=== PATIENT | female | born 1990 | race Caucasian/White ===

== ENCOUNTER 2017-02-03 02:10 | Emergency (ER) | payer MEDICAID ==
[2017-02-03 02:49] VITALS: BP 103/83; PULSE 82; RESP 16; TEMP 98; O2SAT 98
--- NOTE | 2017-02-03 03:05 | ED PDOC ---
HPI: Wound Care - HPI Time Seen by Provider: 02/03/17 02:21 Chief Complaint (Nursing): Abnormal Skin Integrity Chief Complaint (Provider): Wound Check History Per: Patient Additional Complaint(s): Pt presents to ED for wound check. 26 yo female, PMH of Bipolar disorder, , states had on Sunday and has been been active, states feels like wound is opening up. no pain, swelling or redness. (+) pruritis. Past Medical History Reviewed: Nursing Documentation, Vital Signs Vital Signs: Last Vital Signs Temp 98.0 F 02/03/17 02:46 Pulse 82 02/03/17 02:46 Resp 16 02/03/17 02:46 BP 103/83 02/03/17 02:46 Pulse Ox 98 02/03/17 02:46 - Medical History PMH: Bipolar Disorder, Depression - Surgical History Surgical History: No Surg Hx - Family History Family History: States: Unknown Family Hx - Living Arrangements Living Arrangements: With Family - Social History Current smoker - smoking cessation education provided: No Alcohol: None Drugs: Denies - Immunization History Hx Tetanus Toxoid Vaccination: No Hx Influenza Vaccination: No Hx Pneumococcal Vaccination: No - Home Medications Home Medications: Ambulatory Orders Medication Instructions Recorded Diphenhydramine Hydrochlorid 25 mg PO TID PRN #30 cap 06/25/14 [Benadryl] Acetaminophen 625 mg PO QID PRN #60 tab 01/23/15 - Allergies Allergies/Adverse Reactions: Allergies Allergy/AdvReac Type Severity Reaction Status Date / Time No Known Allergies Allergy Verified 03/01/15 20:45 Review of Systems ROS Statement: Except As Marked, All Systems Reviewed And Found Negative Skin: Positive for: Other (incision) Physical Exam - Reviewed Nursing Documentation Reviewed: Yes Vital Signs Reviewed: Yes - Physical Exam Appears: Positive for: Well, Non-toxic, No Acute Distress Head Exam: Positive for: ATRAUMATIC, NORMAL INSPECTION, NORMOCEPHALIC Skin: Positive for: Normal Color, Warm, DRY Eye Exam: Positive for: EOMI, Normal appearance, PERRL ENT: Positive for: Normal ENT Inspection Neck: Positive for: Normal, Painless ROM Cardiovascular/Chest: Positive for: Regular Rate, Rhythm Respiratory: Positive for: CNT, Normal Breath Sounds Gastrointestinal/Abdominal: Positive for: Bowel Sounds, Soft, Tenderness ((+) well healing incision site, no surrounding ededma, erythema,no tenderess or drainage) Back: Positive for: Normal Inspection Extremity: Positive for: Normal ROM Neurologic/Psych: Positive for: Alert, Oriented - ECG O2 Sat by Pulse Oximetry: 98 Medical Decision Making Medical Decision Making: Pt educated on wound care and demonstrated full understanding Disposition - Clinical Impression Clinical Impression: Visit for wound check - Patient ED Disposition Is Patient to be Admitted: No - Disposition Disposition: Routine/Home Disposition Time: 03:12 Condition: STABLE - POA Present On Arrival: None
== END 2017-02-03 03:08 | disposition home or self-care (01) ==
LOC: H.ER 02:10
DX: Z48.00 Encounter for change or removal of nonsurgical wound dressing (principal)

== ENCOUNTER 2017-03-15 16:34 | Observation (INO) | payer MEDICAID ==
[2017-03-15] MEDS ORDERED: Sodium Chloride 0.9% 1,000 ML IV STA ×2 (16:43→18:36)
[2017-03-15 17:30] LABS: BASO % 0.5 % (0.0-2.0); EOS # 0.1 K/uL (0.0-0.7); HEMOGLOBIN 10.7 g/dL (12.0-16.0); LYMPH # 1.4 K/uL (1.0-4.3); MEAN CELL VOLUME 76.5 fl (81.0-99.0); MEAN CORPUSCULAR HEMOGLOBIN 24.8 pg (27.0-31.0); MEAN CORPUSCULAR HGB CONC 32.4 g/dL (33.0-37.0); MEAN PLATELET VOLUME 6.2 fl (7.2-11.7); MONO # 0.4 K/uL (0.0-0.8); MONO % 5.7 % (0.0-10.0); NEUT # 4.8 K/uL (1.8-7.0); NEUT % 71.8 % (50.0-75.0); RBC 4.32 Mil/uL (3.80-5.20); RED CELL DISTRIBUTION WIDTH 15.8 % (11.5-14.5); WHITE BLOOD COUNT 6.7 K/uL (4.8-10.8)
[2017-03-15 17:31] LABS: VENOUS BLOOD GAS BASE EXCESS 2.8 mmol/L (0.0-2.0); VENOUS BLOOD GAS PCO2 52 mmHg (40-60); VENOUS BLOOD GAS PO2 25 mm/Hg (30-55); VENOUS BLOOD PH 7.36 (7.32-7.43)
[2017-03-15 17:39] LABS: ALB/GLOB RATIO 1.4 (1.0-2.1); ALBUMIN 4.3 g/dL (3.5-5.0); ALT/SGPT 28 U/L (9-52); AST/SGOT 28 U/L (14-36); BLOOD UREA NITROGEN 19 mg/dl (7-17); CALCIUM 8.8 mg/dL (8.4-10.2); GFR AFRICAN-AMERICAN > 60; GFR NON-AFRICAN AMERICAN > 60; LIPASE 270 U/L (23-300)
--- NOTE | 2017-03-15 17:40 | ED PDOC ---
HPI: Abdomen Time Seen by Provider: 03/15/17 16:42 Chief Complaint (Nursing): Abdominal Pain Chief Complaint (Provider): upper abdominal pain, nausea History Per: Patient History/Exam Limitations: no limitations Onset/Duration Of Symptoms: Hrs (2) Current Symptoms Are (Timing): Still Present Severity: Moderate Location Of Pain/Discomfort: Epigastric Quality Of Discomfort: Sharp, Cramping Associated Symptoms: Nausea, Loss Of Appetite. denies: Vomiting Exacerbating Factors: None Alleviating Factors: None Last Bowel Movement: Today Additional Complaint(s): 26yo female approx 6 weeks CSection presents c/o upper abdominal pain , nausea, malaise since eating [place] about 2 hours prior to arrival. Found to have fever in ED, states she felt well this morning, no prior history of similar symptoms. Baby currently with grandmother. Pt is not breast feeding. Past Medical History Reviewed: Historical Data, Nursing Documentation, Vital Signs Vital Signs: Last Vital Signs Temp 98.1 F 03/15/17 22:20 Pulse 51 L 03/15/17 18:41 Resp 18 03/15/17 18:41 BP 121/57 L 03/15/17 22:20 Pulse Ox 100 03/15/17 22:26 - Medical History PMH: Bipolar Disorder, Depression - Surgical History Surgical History: - Family History Family History: States: Unknown Family Hx - Living Arrangements Living Arrangements: With Family - Social History Current smoker - smoking cessation education provided: No Alcohol: None - Immunization History Hx Tetanus Toxoid Vaccination: No Hx Influenza Vaccination: No Hx Pneumococcal Vaccination: No - Home Medications Home Medications: Ambulatory Orders Medication Instructions Recorded Diphenhydramine Hydrochlorid 25 mg PO TID PRN #30 cap 06/25/14 [Benadryl] Acetaminophen 625 mg PO QID PRN #60 tab 01/23/15 Ondansetron [Zofran] 4 mg PO Q6H PRN #10 tab 03/15/17 - Allergies Allergies/Adverse Reactions: Allergies Allergy/AdvReac Type Severity Reaction Status Date / Time No Known Allergies Allergy Verified 03/15/17 16:37 Review of Systems ROS Statement: Except As Marked, All Systems Reviewed And Found Negative Constitutional: Positive for: Chills, Malaise ENT: Negative for: Ear Pain, Throat Pain, Throat Swelling Cardiovascular: Negative for: Chest Pain, Palpitations Respiratory: Negative for: Cough, Shortness of Breath Gastrointestinal: Positive for: Nausea, Abdominal Pain. Negative for: Diarrhea , Hematochezia, Hematemesis Genitourinary Female: Negative for: Dysuria, Frequency, Vaginal Discharge Musculoskeletal: Negative for: Neck Pain, Arm Pain, Leg Pain Skin: Negative for: Rash, Lesions, Jaundice Neurological: Negative for: Weakness, Numbness, Headache Psych: Negative for: Anxiety, Psychosis Physical Exam - Reviewed Nursing Documentation Reviewed: Yes Vital Signs Reviewed: Yes - Physical Exam Appears: Positive for: Well, Non-toxic, No Acute Distress Head Exam: Positive for: ATRAUMATIC, NORMAL INSPECTION, NORMOCEPHALIC Skin: Positive for: Normal Color, Warm, DRY Eye Exam: Positive for: EOMI, Normal appearance, PERRL ENT: Positive for: Normal ENT Inspection Neck: Positive for: Normal, Painless ROM Cardiovascular/Chest: Positive for: Regular Rate, Rhythm Respiratory: Positive for: CNT, Normal Breath Sounds Gastrointestinal/Abdominal: Positive for: Bowel Sounds, Soft, Tenderness (mild epigastric and RUQ tenderness, no lower abd tenderness) Back: Positive for: Normal Inspection Extremity: Positive for: Normal ROM Neurologic/Psych: Positive for: Alert, Oriented - Laboratory Results Result Diagrams: 03/15/17 17:26 03/15/17 17:26 Urine POC: Negative Urine dip results: Positive for: Blood (TR) - ECG O2 Sat by Pulse Oximetry: 100 Pulse Ox Interpretation: Normal Medical Decision Making Medical Decision Making: workup initiated for biliary colic/ gastroenteritis/ or other abdominal pathology. Given fever, VBG lactate ordered, normal US abd = gallstone at neck. GB wall 2mm. No edema, no sludge. labs reviewed WBC, LFTs, lipase normal +moderate anemia, mild elev BUN c/w dehydration Given fever and presentation, CT abd pelv ordered: FINDINGS: Lower thorax: Heart size is normal. Lung bases are clear ABDOMEN: Liver: There is fatty infiltration of the liver. Gallbladder and bile ducts: unremarkable Pancreas: unremarkable Spleen: Spleen is unremarkable. There are small splenules in the left upper quadrant. Adrenals: unremarkable Kidneys and ureters: unremarkable Stomach and bowel: Stomach is partially distended. Rotation is normal. There is no obstruction. There is fecalization of the terminal ileum. Visualized portion the appendix is unremarkable.Colon is incompletely distended which limits evaluation. Appendix: See above. PELVIS: Bladder: unremarkable Reproductive: Uterus and adnexal structures are unremarkable. ABDOMEN and PELVIS: Intraperitoneal space: There is no significant fluid.There is no free air. Bones/joints: There are no acute osseous abnormalities Soft tissues: There is a fat-containing umbilical hernia. There is residual postsurgical change in the lower abdominal wall. Vasculature: Vascular structures are unremarkable. Lymph nodes: There is no pathologic adenopathy. IMPRESSION: No acute solid visceral or bowel abnormality; partially distended gallbladder, no ductal dilatation Thank you for allowing us to participate in the care of your patient. Dictated and Authenticated by: Qian Rodrigues MD 03/15/2017 9:48 PM Eastern Time ([place] & [place]) PO challenge in ED no vomiting. 22:23 Upon re-evaluation, patient is afebrile and reports improved condition. PO challenge was successful. Instructed on her findings including gallstones and need for follow up with GI/surgery. Told of risks of failure to follow up including pancreatitis, liver failure, and other major abdominal complications ED OBSERVATION Date of observation admission: 03/15/17 - Observation admission statement Patient is being placed in observation because:: Need for results from imaging techniques - Goals of Observation Goals of observation are:: CT imaging results, re-evaluation and disposition. - Progress Note Progress Note: 03/15/17 20:00 Patient was re-evaluted. Reports improvement in symptoms. Still awaiting CT results. Disposition - Clinical Impression Clinical Impression: Gallstone, Abdominal pain - Patient ED Disposition Is Patient to be Admitted: No Counseled Patient/Family Regarding: Studies Performed, Diagnosis, Need For Followup, Rx Given - Disposition Disposition: Routine/Home Disposition Time: 22:30 Condition: STABLE
[2017-03-15] MEDS ORDERED: Iohexol 240 (50 ml) PO ONE (18:17)
[2017-03-15 18:36] VITALS: RESP 18
[2017-03-15 18:41] VITALS: PULSE 51
[2017-03-15] MEDS ORDERED: Iohexol 300 100 ML IJ ONE (20:42)
[2017-03-15] MEDS ORDERED: Sodium Chloride 0.9% 50 ML IV ONE (20:42)
--- NOTE | 2017-03-15 21:49 | CT ---
EXAM: CT Abdomen and Pelvis With Intravenous Contrast CLINICAL HISTORY: 26 years old, female; Pain; Abdominal pain; Localized; Right upper quadrant (ruq); Prior surgery; Surgery date: 1-6 months; Surgery type: Pt states: 6 weeks ago; Additional info: Ruq pain, fever, gallstones TECHNIQUE: Axial computed tomography images of the abdomen and pelvis with intravenous contrast. This CT exam was performed using one or more of the following dose reduction techniques: automated exposure control, adjustment of the mA and/or kV according to patient size, and/or use of iterative reconstruction technique. Coronal and sagittal reformatted images were created and reviewed. CONTRAST: 95 mL of [id number] administered intravenously. EXAM DATE/TIME: 03/15/2017 6:17 PM COMPARISON: There are no prior studies for comparison. FINDINGS: Lower thorax: Heart size is normal. Lung bases are clear ABDOMEN: Liver: There is fatty infiltration of the liver. Gallbladder and bile ducts: unremarkable Pancreas: unremarkable Spleen: Spleen is unremarkable. There are small splenules in the left upper quadrant. Adrenals: unremarkable Kidneys and ureters: unremarkable Stomach and bowel: Stomach is partially distended. Rotation is normal. There is no obstruction. There is fecalization of the terminal ileum. Visualized portion the appendix is unremarkable.Colon is incompletely distended which limits evaluation. Appendix: See above. PELVIS: Bladder: unremarkable Reproductive: Uterus and adnexal structures are unremarkable. ABDOMEN and PELVIS: Intraperitoneal space: There is no significant fluid.There is no free air. Bones/joints: There are no acute osseous abnormalities Soft tissues: There is a fat-containing umbilical hernia. There is residual postsurgical change in the lower abdominal wall. Vasculature: Vascular structures are unremarkable. Lymph nodes: There is no pathologic adenopathy. IMPRESSION: No acute solid visceral or bowel abnormality; partially distended gallbladder, no ductal dilatation
[2017-03-15 22:06] VITALS: O2SAT 100
[2017-03-15 22:21] VITALS: BP 121/57; TEMP 98.1
--- NOTE | 2017-03-16 10:14 | CARD ---
APPROVED REPORT EKG Measurement Heart [id number] <Conclusion> Sinus bradycardia with sinus arrhythmia Otherwise normal ECG
--- NOTE | 2017-03-16 15:26 | US ---
HISTORY: RUQ and epigastric pain COMPARISON: None. TECHNIQUE: Sonographic evaluation of the right upper quadrant of the abdomen. FINDINGS: LIVER: Measures 16.2 cm in length. Normal echogenicity of the liver parenchyma. No mass. No intrahepatic bile duct dilatation. GALLBLADDER: Cholelithiasis. Several calculi seen in gallbladder neck. No mural thickening. No pericholecystic fluid. Positive sonographic Montelongo sign. Findings are equivocal for cholecystitis. COMMON BILE DUCT: Measures 2 mm. No stones. No dilatation. PANCREAS: Unremarkable as visualized. No mass. No ductal dilatation. RIGHT KIDNEY: Measures 11.2 cm in length. Normal echogenicity. No calculus, mass, or hydronephrosis. AORTA: No aneurysmal dilatation. IVC: Unremarkable. OTHER FINDINGS: None . IMPRESSION: Cholelithiasis with no mural thickening or pericholecystic fluid but positive sonographic Montelongo sign. Findings are equivocal for cholecystitis. No additional abnormality.
== END 2017-03-15 22:22 | disposition home or self-care (01) ==
LOC: H.ER 16:34 → H.EROBSV 18:17
PROVIDERS: ADMIT Emergency Medicine; ATTEND Emergency Medicine
DX: K80.20 Calculus of gallbladder without cholecystitis without obstruction (principal); F31.9 Bipolar disorder, unspecified; F32.9 Major depressive disorder, single episode, unspecified

== ENCOUNTER 2017-05-12 02:44 | Emergency (ER) | payer MEDICAID ==
[2017-05-12 03:02] VITALS: BMI 37.1
--- NOTE | 2017-05-12 03:08 | ED PDOC ---
HPI: SOB/CHF/COPD Time Seen by Provider: 05/12/17 03:06 Chief Complaint (Nursing): Shortness Of Breath Chief Complaint (Provider): CHEST PAIN History Per: Patient (26 Y/O FEMALE S/P CHOLECYSTECTOMY HERE WITH COMPLAINT OF CHEST PAIN AND SHORTNESS OF BREATH WAXING AND WANING. DENIES ANY H/O ANXIETY. DENIES ANY H/O SOB.) Past Medical History Reviewed: Historical Data, Nursing Documentation, Vital Signs Vital Signs: Last Vital Signs Temp 97.9 F 05/12/17 03:00 Pulse 60 05/12/17 03:00 Resp 16 05/12/17 03:00 BP 103/50 L 05/12/17 03:00 Pulse Ox 100 05/12/17 03:00 - Medical History PMH: Bipolar Disorder, Depression Denies: Chronic Kidney Disease - Surgical History Surgical History: Cholecystectomy, - Family History Family History: States: Unknown Family Hx - Immunization History Hx Tetanus Toxoid Vaccination: No Hx Influenza Vaccination: No Hx Pneumococcal Vaccination: No - Home Medications Home Medications: Ambulatory Orders Medication Instructions Recorded Diphenhydramine Hydrochlorid 25 mg PO TID PRN #30 cap 06/25/14 [Benadryl] Acetaminophen 625 mg PO QID PRN #60 tab 01/23/15 Ondansetron [Zofran] 4 mg PO Q6H PRN #10 tab 03/15/17 - Allergies Allergies/Adverse Reactions: Allergies Allergy/AdvReac Type Severity Reaction Status Date / Time No Known Allergies Allergy Verified 03/15/17 16:37 Review of Systems ROS Statement: Except As Marked, All Systems Reviewed And Found Negative Physical Exam - Reviewed Nursing Documentation Reviewed: Yes Vital Signs Reviewed: Yes - Physical Exam Appears: Positive for: Well, Non-toxic, No Acute Distress Head Exam: Positive for: ATRAUMATIC, NORMAL INSPECTION, NORMOCEPHALIC Skin: Positive for: Normal Color, Warm, DRY Eye Exam: Positive for: EOMI, Normal appearance, PERRL ENT: Positive for: Normal ENT Inspection Neck: Positive for: Normal, Painless ROM Cardiovascular/Chest: Positive for: Regular Rate, Rhythm Respiratory: Positive for: CNT, Normal Breath Sounds Gastrointestinal/Abdominal: Positive for: Normal Exam, Bowel Sounds, Soft Back: Positive for: Normal Inspection Extremity: Positive for: Normal ROM Neurologic/Psych: Positive for: Alert, Oriented - ECG O2 Sat by Pulse Oximetry: 100 Disposition - Disposition
[2017-05-12 03:32] LABS: BASO % 0.3 % (0.0-2.0); EOS # 0.1 K/uL (0.0-0.7); EOS % 1.6 % (0.0-4.0); HEMATOCRIT 28.7 % (34.0-47.0); LYMPH # 1.2 K/uL (1.0-4.3); LYMPH % 22.4 % (20.0-40.0); MEAN CELL VOLUME 75.7 fl (81.0-99.0); MEAN CORPUSCULAR HEMOGLOBIN 25.4 pg (27.0-31.0); MEAN CORPUSCULAR HGB CONC 33.5 g/dL (33.0-37.0); MEAN PLATELET VOLUME 6.8 fl (7.2-11.7); MONO # 0.4 K/uL (0.0-0.8); MONO % 8.2 % (0.0-10.0); NEUT # 3.6 K/uL (1.8-7.0); NEUT % 67.5 % (50.0-75.0); RED CELL DISTRIBUTION WIDTH 16.4 % (11.5-14.5); WHITE BLOOD COUNT 5.4 K/uL (4.8-10.8)
[2017-05-12 04:14] LABS: GLUCOSE,RANDOM 99 mg/dL (65-105)
[2017-05-12 04:15] LABS: BLOOD UREA NITROGEN 11 mg/dl (7-17); CALCIUM 8.6 mg/dL (8.4-10.2); CARBON DIOXIDE 27 mmol/L (22-30); CHLORIDE 105 mmol/L (98-107); GFR AFRICAN-AMERICAN > 60; POTASSIUM 3.4 MMOL/L (3.6-5.0); SODIUM 141 mmol/l (132-148); TOTAL PROTEIN 7.1 G/DL (6.3-8.2)
[2017-05-12 04:16] LABS: ALKALINE PHOSPHATASE 99 U/L (38-126); ALT/SGPT 105 U/L (9-52); AST/SGOT 96 U/L (14-36); BILIRUBIN,TOTAL 0.4 mg/dl (0.2-1.3)
[2017-05-12] MEDS ORDERED: Sodium Chloride 0.9% 1,000 ML IV STA (04:42)
[2017-05-12] MEDS ORDERED: Iodixanol 320 MG/ML 100 ML BOTTLE IV ONE (05:34)
[2017-05-12] MEDS ORDERED: Sodium Chloride 0.9% 50 ML IV ONE ×2 (05:34→05:53)
[2017-05-12] MEDS ORDERED: Iohexol 300 100 ML IJ ONE (05:52)
--- NOTE | 2017-05-12 06:19 | ED PDOC ---
- Laboratory Results Result Diagrams: 05/12/17 03:15 05/12/17 03:15 - ECG O2 Sat by Pulse Oximetry: 97 (RA) Pulse Ox Interpretation: Normal Medical Decision Making Medical Decision Making: Time: 6:00 --Patient is signed out to me by Yefri Dick PA-C pending CT and reevaluation. Time: 6:54 CT CHEST ANGIO FINDINGS: Pulmonary arteries: Unremarkable. No pulmonary embolism. Aorta: No acute findings. No thoracic aortic aneurysm. Lungs: Mild dependent atelectatic changes. No mass. No consolidation. Pleural space: Unremarkable. No significant effusion. No pneumothorax. Heart: Unremarkable. No cardiomegaly. No significant pericardial effusion. No evidence of RV dysfunction. Bones/joints: No acute fracture. No dislocation. Soft tissues: Unremarkable. Lymph nodes: Unremarkable. No enlarged lymph nodes. Gallbladder and bile ducts: Clips are noted from prior cholecystectomy. IMPRESSION: No evidence of pulmonary embolism. --Upon provider reevaluation patient is feeling better, medically stable, and requires no further treatment in the ED at this time. Patient will be discharged home. Counseling was provided and all questions were answered regarding diagnosis and need for follow up with PMD. There is agreement to discharge plan. Return if symptoms persist or worsen. Clinical Impression: dyspnea Scribe Attestation: Documented by Charlie Romeo, acting as a scribe for Krishna Yost MD Provider Scribe Attestation: All medical record entries made by the Scribe were at my direction and personally dictated by me. I have reviewed the chart and agree that the record accurately reflects my personal performance of the history, physical exam, medical decision making, and the department course for this patient. I have also personally directed, reviewed, and agree with the discharge instructions and disposition. Disposition Counseled Patient/Family Regarding: Studies Performed, Diagnosis, Need For Followup - Clinical Impression Clinical Impression: Dyspnea - POA Present On Arrival: None - Disposition Disposition: Routine/Home Disposition Time: 07:00 Condition: STABLE Instructions: Dyspnea (ED) Forms: [employer] (Pashto)
--- NOTE | 2017-05-12 06:55 | CT ---
EXAM: CT Angiography Chest With Intravenous Contrast CLINICAL HISTORY: 26 years old, female; Signs and symptoms; Shortness of breath; Patient HX: See phys doc; Additional info: R/O pe TECHNIQUE: Axial computed tomographic angiography images of the chest with intravenous contrast using pulmonary embolism protocol. All CT scans at this facility use one or more dose reduction techniques, viz.: automated exposure control; ma/kV adjustment per patient size (including targeted exams where dose is matched to indication; i.e. head); or iterative reconstruction technique. MIP reconstructed images were created and reviewed. CONTRAST: 95 mL of OMNI 300 administered intravenously. COMPARISON: No relevant prior studies available. FINDINGS: Pulmonary arteries: Unremarkable. No pulmonary embolism. Aorta: No acute findings. No thoracic aortic aneurysm. Lungs: Mild dependent atelectatic changes. No mass. No consolidation. Pleural space: Unremarkable. No significant effusion. No pneumothorax. Heart: Unremarkable. No cardiomegaly. No significant pericardial effusion. No evidence of RV dysfunction. Bones/joints: No acute fracture. No dislocation. Soft tissues: Unremarkable. Lymph nodes: Unremarkable. No enlarged lymph nodes. Gallbladder and bile ducts: Clips are noted from prior cholecystectomy. IMPRESSION: No evidence of pulmonary embolism.
[2017-05-12 07:08] VITALS: BP 133/68; PULSE 61; RESP 16; TEMP 97.8
--- NOTE | 2017-05-12 10:44 | RAD ---
HISTORY: CHEST PAIN COMPARISON: No prior. FINDINGS: LUNGS: No active pulmonary disease. PLEURA: No significant pleural effusion identified, no pneumothorax apparent. CARDIOVASCULAR: Normal. OSSEOUS STRUCTURES: No significant abnormalities. VISUALIZED UPPER ABDOMEN: Normal. OTHER FINDINGS: None. IMPRESSION: No active disease.
--- NOTE | 2017-05-12 13:29 | CARD ---
APPROVED REPORT EKG Measurement Heart [id number] AL [id number] <Conclusion> Sinus bradycardia with sinus arrhythmia Otherwise normal ECG
[2017-05-12 22:56] VITALS: O2SAT 97
== END 2017-05-12 07:19 | disposition home or self-care (01) ==
LOC: H.ER 02:44
DX: R06.00 Dyspnea, unspecified (principal)
CPT/HCPCS: 71010; 71275; 80053; 84484; 85025; 85378; 93005; 96374; 99284; J7040; Q9967

== ENCOUNTER 2017-07-18 09:15 | Emergency (ER) | payer MEDICAID ==
[2017-07-18 09:15] VITALS: BMI 37.1
[2017-07-18 09:24] VITALS: BP 127/75; PULSE 92; RESP 20; TEMP 98.9; O2SAT 98
--- NOTE | 2017-07-18 10:42 | RAD ---
PROCEDURE: Left Hand Radiographs. HISTORY: L hand wrist pain COMPARISON: None available. FINDINGS: BONES: No acute displaced fracture. JOINTS: No dislocation. SOFT TISSUES: Unremarkable. No evidence of radiopaque foreign body. OTHER FINDINGS: Evaluation of the 1st and 4th distal digits obscured by a external artifact on the patient nails. IMPRESSION: No acute displaced fracture, dislocation, or significant joint effusion identified. If symptoms persist, or if there is continued clinical concern, x-ray follow-up in 7-10 days should be considered.
--- NOTE | 2017-07-18 10:42 | RAD ---
PROCEDURE: Left Wrist Radiographs. HISTORY: L hand/wrist pain COMPARISON: None available. FINDINGS: BONES: No acute displaced fracture. JOINTS: No dislocation. SOFT TISSUES: Unremarkable. No evidence of radiopaque foreign body OTHER FINDINGS: None. IMPRESSION: No acute displaced fracture, dislocation, or significant joint effusion identified. If symptoms persist, or if there is continued clinical concern, x-ray follow-up in 7-10 days should be considered.
--- NOTE | 2017-07-18 10:53 | ED PDOC ---
Upper Extremity Pain/Injury Time Seen by Provider: 07/18/17 09:54 Chief Complaint (Nursing): Upper Extremity Problem/Injury Chief Complaint (Provider): left hand pain History Per: Patient History/Exam Limitations: no limitations Onset/Duration Of Symptoms: Days (3), Gradual Current Symptoms Are (Timing): Still Present Quality: Aching Severity: Mild Hands/Wrist (Pic): 1 - Pain Worse W/Movement Exacerbating Factor(s): Strenuous Use Of Affected Area Additional Complaint(s): 26yo female c/o left hand pain worse w movement ongoing over the last 3-4 days. 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 She states pain is diffuse and radiates to wrist. She denies injury, fall, redness, swelling, changes to nails or elbow /shoulder pain. Denies drug use. Has tattoo to L ring finger but 2+ years old. Denies other joint pains, rash, fever or malaise. Past Medical History Reviewed: Historical Data, Nursing Documentation, Vital Signs Vital Signs: Last Vital Signs Temp 98.9 F 07/18/17 09:35 Pulse 92 H 07/18/17 09:35 Resp 20 07/18/17 09:35 BP 127/75 07/18/17 09:35 Pulse Ox 98 07/18/17 09:35 - Medical History PMH: Bipolar Disorder, Depression Denies: Chronic Kidney Disease - Surgical History Surgical History: Cholecystectomy, - Family History Family History: States: Unknown Family Hx - Immunization History Hx Tetanus Toxoid Vaccination: No Hx Influenza Vaccination: No Hx Pneumococcal Vaccination: No - Home Medications Home Medications: Ambulatory Orders Medication Instructions Recorded Diphenhydramine Hydrochlorid 25 mg PO TID PRN #30 cap 06/25/14 [Benadryl] Acetaminophen 625 mg PO QID PRN #60 tab 01/23/15 Ondansetron [Zofran] 4 mg PO Q6H PRN #10 tab 03/15/17 Naproxen [Naprosyn] 500 mg PO BID PRN #14 tablet 07/18/17 - Allergies Allergies/Adverse Reactions: Allergies Allergy/AdvReac Type Severity Reaction Status Date / Time No Known Allergies Allergy Verified 07/18/17 09:35 Review of Systems Constitutional: Negative for: Fever, Chills Musculoskeletal: Positive for: Hand Pain. Negative for: Neck Pain, Shoulder Pain, Arm Pain, Leg Pain, Foot Pain Physical Exam - Reviewed Nursing Documentation Reviewed: Yes Vital Signs Reviewed: Yes - Physical Exam Appears: Positive for: Well Head Exam: Positive for: ATRAUMATIC Skin: Positive for: Normal Color, Warm Eye Exam: Positive for: Normal appearance, EOMI Cardiovascular/Chest: Positive for: Regular Rate, Rhythm Respiratory: Negative for: Respiratory Distress Extremity: Positive for: Normal ROM, Other (L hand no erythema, edema, acrylic nails obscuring nail beds pt refused to take off, normal radial pulse, no cyanosis, weakness or sensory loss to hand or digits, +mild tinels sign, neg finkelsetin test). Negative for: Tenderness, Deformity, Swelling Neurologic/Psych: Positive for: Alert, Oriented. Negative for: Motor/Sensory Deficits - ECG O2 Sat by Pulse Oximetry: 98 Medical Decision Making Medical Decision Making: XRay L hand and wrist neg for fracture per radilogist neurologically intact in ED, no evidence of current compartment syndrome, hand infection, neurologic emergency or ischemia. Wrist splint applied by MD lui intact neurovascular status thereafter. Initiate NSAID and followup hand specialist for further testing. Disposition - Clinical Impression Clinical Impression: Hand pain, left - Patient ED Disposition Is Patient to be Admitted: No Counseled Patient/Family Regarding: Studies Performed, Diagnosis, Need For Followup, Rx Given - Disposition Referrals: Devora Galeas MD [Staff Provider] - Disposition Time: 11:10 Condition: STABLE Additional Instructions: [place]up with hand specialist for further testing and definitive care. Take medication as directed. Use wrist splint as directed. Prescriptions: Naproxen [Naprosyn] 500 mg PO BID PRN #14 tablet PRN Reason: Pain, Moderate (4-7) Instructions: Carpal Tunnel Syndrome (ED), Arthralgia (ED) Forms: [employer] (Indonesian)
== END 2017-07-18 11:21 | disposition home or self-care (01) ==
LOC: H.ER 09:15
DX: M79.642 Pain in left hand (principal)

== ENCOUNTER 2017-08-08 03:29 | Emergency (ER) | payer MEDICAID ==
[2017-08-08 03:30] VITALS: BMI 37.1
[2017-08-08 04:04] VITALS: BP 115/76; PULSE 81; RESP 16; TEMP 98.6; O2SAT 100
--- NOTE | 2017-08-08 04:55 | ED PDOC ---
HPI: Eye Injury/Pain Time Seen by Provider: 08/08/17 04:15 Chief Complaint (Nursing): Eye Problem Chief Complaint (Provider): left eye irritation History Per: Patient History/Exam Limitations: no limitations Onset/Duration Of Symptoms: Days (2) Current Symptoms Are (Timing): Still Present Associated Symptoms: Pain Additional History Per: Patient Additional Complaint(s): 26 y/o female presents with left eye irritation x 2 days. Patient states she lost her contact while taking it out at night time, and found it by the sink in the morning, so placed it in solution then put it back in her eye. Patient states since then she has had a burning sensation to left eye and notes redness. Denies headache, vision changes, foreign body sensation, discharge from eye. Using red eye drops without improvement. Past Medical History Reviewed: Historical Data, Nursing Documentation, Vital Signs Vital Signs: Last Vital Signs Temp 98.6 F 08/08/17 04:01 Pulse 81 08/08/17 04:01 Resp 16 08/08/17 04:01 BP 115/76 08/08/17 04:01 Pulse Ox 100 08/08/17 04:01 - Medical History PMH: Bipolar Disorder, Depression Denies: Chronic Kidney Disease - Surgical History Surgical History: Cholecystectomy, - Family History Family History: States: Unknown Family Hx - Immunization History Hx Tetanus Toxoid Vaccination: No Hx Influenza Vaccination: No Hx Pneumococcal Vaccination: No - Home Medications Home Medications: Ambulatory Orders Medication Instructions Recorded Diphenhydramine Hydrochlorid 25 mg PO TID PRN #30 cap 06/25/14 [Benadryl] Acetaminophen 625 mg PO QID PRN #60 tab 01/23/15 Ondansetron [Zofran] 4 mg PO Q6H PRN #10 tab 03/15/17 Naproxen [Naprosyn] 500 mg PO BID PRN #14 tablet 07/18/17 Ofloxacin Ophth 0.3% [Ocuflox 2 drop OS QID #1 bottle 08/08/17 Ophth 0.3%] - Allergies Allergies/Adverse Reactions: Allergies Allergy/AdvReac Type Severity Reaction Status Date / Time No Known Allergies Allergy Verified 07/18/17 09:35 Review of Systems ROS Statement: Except As Marked, All Systems Reviewed And Found Negative Eyes: Positive for: Redness (left) Physical Exam - Reviewed Nursing Documentation Reviewed: Yes Vital Signs Reviewed: Yes - Physical Exam Appears: Positive for: Well, Non-toxic, No Acute Distress Head Exam: Positive for: ATRAUMATIC, NORMAL INSPECTION, NORMOCEPHALIC Skin: Positive for: Normal Color Eye Exam: Positive for: EOMI, PERRL, Conjunctival injection (left). Negative for: Periorbital swelling, Periorbital tenderness - ECG O2 Sat by Pulse Oximetry: 100 - Progress ED Course And Treament: Left eye anesthesized with 1 drop tetracaine; fluro stain reveals no uptake. Patient educated on findings, discharged with rx ofloxacin. Advised to d/c contacts. Follow up optho. Return precautions given. Disposition - Clinical Impression Clinical Impression: Conjunctivitis - Patient ED Disposition Is Patient to be Admitted: No Counseled Patient/Family Regarding: Studies Performed, Diagnosis, Need For Followup, Rx Given - Disposition Referrals: Arvind Shay MD [Primary Care Provider] - Mohan Lazo MD [Staff Provider] - Disposition: Routine/Home Disposition Time: 04:55 Condition: IMPROVED Prescriptions: Ofloxacin Ophth 0.3% [Ocuflox Ophth 0.3%] 2 drop OS QID #1 bottle Instructions: Conjunctivitis (ED)
== END 2017-08-08 05:05 | disposition home or self-care (01) ==
LOC: H.ER 03:29
DX: H10.9 Unspecified conjunctivitis (principal); F31.9 Bipolar disorder, unspecified

== ENCOUNTER 2018-08-29 17:03 | Emergency (ER) | payer MEDICAID ==
[2018-08-29 17:03] VITALS: BMI 37.1
[2018-08-29 18:12] VITALS: RESP 18; O2SAT 100
--- NOTE | 2018-08-29 19:04 | ED PDOC ---
Upper Extremity Pain/Injury Time Seen by Provider: 08/29/18 18:15 Chief Complaint (Nursing): Upper Extremity Problem/Injury Chief Complaint (Provider): Right Arm Pain History Per: Patient History/Exam Limitations: no limitations Onset/Duration Of Symptoms: Days (x4) Current Symptoms Are (Timing): Still Present Additional Complaint(s): 27 year old female presents to the ED for evaluation of a right upper arm injury s/p falling down "a few stairs" four days ago. She reports breaking her fall with her right arm and since has had localized persistent 6/10 pain to the arm radiating down to the elbow, worse with movement and unrelieved by topical remedies. Additionally notes difficulty lifting objects. Denies taking any oral medications, head injury, or loss of consciousness. LNMP: 08/03/2018 Right hand dominant PMD: Steven Tomas Past Medical History Reviewed: Historical Data, Nursing Documentation, Vital Signs Vital Signs: Last Vital Signs Temp 98.4 F 08/29/18 18:12 Pulse 68 08/29/18 18:12 Resp 18 08/29/18 18:12 BP 124/62 08/29/18 18:12 Pulse Ox 100 08/29/18 18:12 - Medical History PMH: Bipolar Disorder, Depression - Surgical History Surgical History: Cholecystectomy, - Family History Family History: States: Unknown Family Hx - Social History Current smoker - smoking cessation education provided: No Alcohol: None Drugs: Denies - Home Medications Home Medications: Ambulatory Orders Medication Instructions Recorded Diphenhydramine Hydrochlorid 25 mg PO TID PRN #30 cap 06/25/14 [Benadryl] RX: Acetaminophen 625 mg PO QID PRN #60 tab 01/23/15 Ondansetron [Zofran] 4 mg PO Q6H PRN #10 tab 03/15/17 Naproxen [Naprosyn] 500 mg PO BID PRN #14 tablet 07/18/17 RX: Ofloxacin Ophth 0.3% [Ocuflox 2 drop OS QID #1 bottle 08/08/17 Ophth 0.3%] Acetaminophen [Acetaminophen 8 650 mg PO Q8 PRN #21 tablet.er 08/29/18 Hour] RX: Naproxen 500 mg PO BID PRN #20 tab 08/29/18 - Allergies Allergies/Adverse Reactions: Allergies Allergy/AdvReac Type Severity Reaction Status Date / Time No Known Allergies Allergy Verified 07/18/17 09:35 Review of Systems ROS Statement: Except As Marked, All Systems Reviewed And Found Negative Constitutional: Negative for: Other (head injury) Musculoskeletal: Positive for: Arm Pain (right upper arm radiating to elbow, worse with movement) Neurological: Negative for: Other (loss of consciousness) Physical Exam - Reviewed Nursing Documentation Reviewed: Yes Vital Signs Reviewed: Yes - Physical Exam Comments: GENERAL APPEARANCE: Patient is awake, alert, oriented x 3, in no acute distress. SKIN: Warm, dry; (-) cyanosis. NECK: Supple, FROM ENT: Mucus membranes moist. Airway patent, (-) stridor. CHEST AND RESPIRATORY: (-) rales, (-) rhonchi, (-) wheezes; breath sounds equal bilaterally. Respirations even and nonlabored. HEART AND CARDIOVASCULAR: (-) irregularity RIGHT UPPER EXTREMITY: (+) 5cm x3cm area of ecchymosis to the medial distal upper arm, (+) faint ecchymosis to lateral distal upper arm (+) diffuse tenderness to distal half of humerus of upper arm and posterior elbow. Decreased flexion of elbow secondary to pain, otherwise FROM of remainder of Upper Extremity. (-) edema, (-) erythema, (-) skin break, (-) warmth. Sensation and capillary refill intact. (+) distal pulses NEURO AND PSYCH: Mental status as above. Gait: steady. Speech: clear. (-) facial asymmetry (-) aphasia - Laboratory Results Urine POC: Negative - ECG O2 Sat by Pulse Oximetry: 100 (RA) Pulse Ox Interpretation: Normal Medical Decision Making Medical Decision Making: Initial Impression: acute right arm pain, r/o humerus fx Time: 1839 Initial Plan: --Right humerus XR --Toradol 30mg IM --re-evaluation 1914 Humerus XR reviewed: possible supracondylar fracture as read by Joao MARINELLI Elbow XR 3 views ordered for further evaluation of possible fracture. 2029 Elbow XR: (?) supracondylar fracture as read by Joao MARINELLI Patient placed in posterior long arm splint and arm sling by VICTOR HUGO Sommer. Placement and application verified by Joao MARIENLLI. NV intact after placement. Patient educated on splint care. On re-evaluation, patient reports improvement of symptoms. On exam, patient remains AAOx3, in no acute distress. Vitals stable. Lab / Diagnostic results d/w the patient in great detail. Diagnosis of acute arm pain s/p fall, possible elbow fracture d/w the patient. Based on history, exam and diagnostic results, plan will be for outpatient follow up with PMD/ortho. Patient instructed to follow-up with pmd / referral provided / the clinic in 1- 2 days without fail. Advised to take medication as prescribed. Return to the emergency room at any time for any new or worsening symptoms. Patient states she fully agrees with and understands discharge instructions. States that she agrees with the plan and disposition. Verbalized and repeated discharge instructions and plan. I have given the patient opportunity to ask any additional questions. Scribe Attestation: Documented by Juana Graves, acting as a scribe for Allison Shepherd PA-C. Provider Scribe Attestation: All medical record entries made by the Scribe were at my direction and personally dictated by me. I have reviewed the chart and agree that the record accurately reflects my personal performance of the history, physical exam, medical decision making, and the department course for this patient. I have also personally directed, reviewed, and agree with the discharge instructions and disposition. Disposition - Clinical Impression Clinical Impression: Elbow pain, right, Fall down stairs, Contusion, arm, upper, Supracondylar fracture of humerus - Patient ED Disposition Is Patient to be Admitted: No Counseled Patient/Family Regarding: Studies Performed, Diagnosis, Need For Followup, Rx Given - Disposition Referrals: Christofer Vyas MD [Medical Doctor] - primary, doctor [Other] Disposition: Routine/Home Disposition Time: 20:30 Condition: STABLE Additional Instructions: FOLLOW UP WITH ORTHO FOR FURTHER EVALUATION. LEAVE SPLINT IN PLACE, INTACT, AND DRY. The emergency medical care you received today was directed at your acute symptoms. If you were prescribed any medication, please fill it and take as directed. It may take several days for your symptoms to resolve. Return to the Emergency Department if your symptoms worsen, do not improve, or if you have any other problems. Please contact your doctor in 2 days for re-evaluation and follow up / or call one of the physicians/clinics you have been referred to that are listed on the Patient Visit Information form that is included in your discharge packet. Bring any paperwork you were given at discharge with you along with any medications you are taking to your follow up visit. Our treatment cannot replace ongoing medical care by a primary care provider (PCP) outside of the emergency department. Prescriptions: Acetaminophen [Acetaminophen 8 Hour] 650 mg PO Q8 PRN #21 tablet.er PRN Reason: Pain, Moderate (4-7) RX: Naproxen 500 mg PO BID PRN #20 tab PRN Reason: Pain, Moderate (4-7) Instructions: Contusion (DC), Elbow Fracture (DC), Upper Arm Fracture Forms: [facility] (Z[place]ian) Print Language: MOHAWK - POA Present On Arrival: Falls Or Trauma (X4 DAYS AGO)
[2018-08-29 21:13] VITALS: BP 118/62; PULSE 76; TEMP 98.2
--- NOTE | 2018-08-30 09:11 | RAD ---
Date of service: 08/29/2018 PROCEDURE: Radiographs of the right elbow. HISTORY: poss supracondylar fx on humerus xr COMPARISON: No prior. FINDINGS: BONES: No acute fracture or destructive bony lesion identified. JOINTS: Normal. No osteoarthritis. SOFT TISSUES: Small rounded calcifications are appreciated in the dorsal forearm soft tissues suggestive JOINT EFFUSION: Of phleboliths OTHER FINDINGS: . IMPRESSION: No acute fracture or dislocation right elbow.
--- NOTE | 2018-08-30 09:12 | RAD ---
PROCEDURE: Radiographs of the right humerus. HISTORY: r/o fracture s/p fall COMPARISON: None. FINDINGS: BONES: No acute fracture or destructive bony lesion identified. SOFT TISSUES: Normal. OTHER FINDINGS: None. IMPRESSION: Unremarkable radiographs of the right humerus. If symptoms persist or worsen consider follow-up MRI or CT.
== END 2018-08-29 21:14 | disposition home or self-care (01) ==
LOC: H.ER 17:03
DX: S42.413A Displaced simple supracondylar fracture without intercondylar fracture of unspecified humerus, initial encounter for closed fracture (principal); S40.021A Contusion of right upper arm, initial encounter; W10.9XXA Fall (on) (from) unspecified stairs and steps, initial encounter; Y92.89 Other specified places as the place of occurrence of the external cause; F31.9 Bipolar disorder, unspecified
CPT/HCPCS: 29105; 73060; 73080; 81025; 96372; 99285; J1885